=== PATIENT | female | born 1955 | race Caucasian/White ===

== ENCOUNTER 2022-03-19 02:08 | Emergency (ER) | payer BC, MEDICAID ==
[~2022-03-19] VITALS: Ht 157.5 cm; Wt 100.2 kg
[~2022-03-19 02:08] MED LIST: ALBU8HFA INH; FURO20TA4 PO; HYDR12.5 PO; LEVO25TA2 PO; METO-539 PO; MULT-1085 PO; SPIIN IH; [UNRECOGNIZED DRUG - CODE] PO
[2022-03-19 02:45] LABS: BASOPHILS # (AUTO) 0.1 X10'3 (0-0.2); BASOPHILS % (AUTO) 0.5 % (0-1); HEMOGLOBIN 14.3 g/dl (12.0-16.0); LYMPHOCYTES # (AUTO) 1.4 X10'3 (1.1-4.8); MEAN CORPUSCULAR HEMOGLOBIN 28.4 PG (27.0-31.0); MONOCYTES # (AUTO) 0.4 X10'3 (0-0.9); PLATELET COUNT 303 X10'3 (140-440)
[2022-03-19 02:46] LABS: EOSINOPHILS % (AUTO) 0.4 % (0-6); HEMATOCRIT 44.3 % (35.0-45.0); LYMPHOCYTES % (AUTO) 12.4 % (21-51); MEAN CORPUSCULAR HGB CONC 32.3 g/dL (33.0-36.5); MEAN CORPUSCULAR VOLUME 87.9 FL (78-98); MEAN PLATELET VOLUME 7.5 FL (7.4-10.4); MONOCYTES % (AUTO) 3.8 % (2-12); NEUTROPHILS # (AUTO) 9.6 X10'3 (1.8-7.7); NEUTROPHILS % (AUTO) 82.9 % (42-75); RED BLOOD COUNT 5.04 X10'6 (4.20-5.60); WHITE BLOOD COUNT 11.5 X10'3 (4.5-11.0)
[2022-03-19 02:57] LABS: ALANINE AMINOTRANSFERASE 53 U/L (12-78); ALBUMIN 4.2 G/DL (3.4-5.0); ALBUMIN/GLOBULIN RATIO 1.1 (1.1-1.5); ALKALINE PHOSPHATASE 101 IU/L (46-116); ANION GAP 7 (8-16); ASPARTATE AMINO TRANSFERASE 29 U/L (10-37); BILIRUBIN,TOTAL 0.4 MG/DL (0.1-1.0); BLOOD UREA NITROGEN 25 MG/DL (7-18); BUN/CREATININE RATIO 29.8 (6.6-38.0); CALCIUM 10.4 MG/DL (8.5-10.1); CHLORIDE 101 MMOL/L (99-107); CREATININE 0.84 MG/DL (0.40-0.90); GLUCOSE 199 MG/DL (70-104); LIPASE 76 U/L (73-393); POTASSIUM 3.1 MMOL/L (3.5-5.1); SODIUM 139 MMOL/L (135-145); TOTAL CARBON DIOXIDE 31.5 MMOL/L (24-32); TOTAL PROTEIN 7.9 G/DL (6.4-8.2); eGFR 68 ML/MIN
[2022-03-19] MEDS ORDERED: metoclopramide 5 mg/ml inj IV ONE (03:10)
[2022-03-19] MEDS ORDERED: ringers solution, lacted 1,000 ML IV ONE (03:10)
[2022-03-19] MEDS ORDERED: morphine 4 MG/ML inj SYRINge IV ONE (03:10)
[2022-03-19] MEDS ORDERED: potassium Cl 20 mEq SR tablet PO ONE (03:10)
[2022-03-19] MEDS ORDERED: normal saline 1000ML IV soln IVB ONE (03:10)
[2022-03-19] MEDS ORDERED: METO-292 PO (04:47)
[2022-03-19 05:01] VITALS: BP 126/76
== END 2022-03-19 05:09 | disposition home or self-care (01) ==
LOC: ER 02:08
DX: K30 Functional dyspepsia (principal); I10 Essential (primary) hypertension; K21.9 Gastro-esophageal reflux disease without esophagitis; E11.9 Type 2 diabetes mellitus without complications; F17.200 Nicotine dependence, unspecified, uncomplicated; Z88.5 Allergy status to narcotic agent; Z88.6 Allergy status to analgesic agent; Z88.8 Allergy status to other drugs, medicaments and biological substances; Z90.49 Acquired absence of other specified parts of digestive tract; Z98.890 Other specified postprocedural states
CPT/HCPCS: 36415; 74176; 80053; 83690; 85025; 96361; 96374; 96375; 99285; J2270; J2765; J7030; J7120

== ENCOUNTER 2024-09-02 21:02 | Emergency (ER) | payer MEDICARE, OTHER ==
[~2024-09-02] VITALS: Ht 157.5 cm; Wt 108.7 kg
[~2024-09-02 21:02] MED LIST changes: +METO-292 PO
--- NOTE | 2024-09-02 21:13 | ELECTROCARDIOGRAPH REPORT ---
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 Jamel Flor Measurements Intervals [place] Rate: 71 P: 41 [place]: 172 QRS: -51 QRSD: 95 T: 32 QT: 410 QTc: 446 Interpretive Statements Atrial-paced complexes Left anterior fascicular block Low voltage, precordial leads Probable anteroseptal infarct, old Electronically Signed On 09-05-2024 19:16:[address] Jamel Flor Please click the below link to view image of tracing.
[2024-09-02 21:28] LABS: MEAN PLATELET VOLUME 7.0 FL (7.4-10.4); RED CELL DISTRIBUTION WIDTH 15.1 % (11.5-14.5)
[2024-09-02 21:45] LABS: CREATININE 0.56 MG/DL (0.40-0.90); PRO BRAIN NATRIURETIC PEPTIDE 311 PG/ML (0-125); TOTAL CARBON DIOXIDE 27.5 MMOL/L (24-32); eGFR > 90 ML/MIN
--- NOTE | 2024-09-02 21:54 | RADIOLOGY REPORT ---
CHEST RADIOGRAPH Indication: CP Technique: Single frontal view of the chest was obtained COMPARISON: None FINDINGS: Lines and Tubes: None Lungs: Clear Pleura: No effusion. No pneumothorax. Cardiomediastinal contours: Unremarkable. Atherosclerotic vascular calcifications. Bones: Unremarkable IMPRESSION: 1. No acute disease.
[2024-09-02] MEDS: ipratropium/albuterol 3ml nebule NEB PRN (22:44)
[2024-09-02 22:45] VITALS: PULSE 70; RESP 19; O2SAT 93
[2024-09-02 22:51] VITALS: PULSE 67; RESP 16; O2SAT 100
[2024-09-03 00:56] VITALS: BP 164/81; PULSE 87; RESP 16; O2SAT 92
[2024-09-03] MEDS ORDERED: CYCL-920 PO (01:20)
[2024-09-03] MEDS ORDERED: PRED50TA PO (01:20)
[2024-09-03] MEDS ORDERED: ALBU8HFA INH (01:20)
--- NOTE | 2024-09-03 01:21 | Physician Documentation ---
History of Present Illness ~ Chief Complaint: Rib pain Stated Complaint: RIGHT SIDE PAIN SOB Time Seen by MD: 22:17 Primary Medical Doctor: ROMEL BENAVIDES Mode of Arrival: POV HPI 68 year old female with chest wall pain/spasms after bouts of coughing. She ran out of her albuterol inhaler and has been coughing for several weeks. She reports that she has begun to experience severe chest wall cramping after bouts of coughing. Denies fevers, N/V/D. Tetanus within 5 Years?: No Allergies: Coded Allergies: acetaminophen (Verified Allergy, Unknown, NAUSEA, 09/27/14) aspartame (Verified Allergy, Unknown, MIGRAINES, 09/27/14) aspirin (Verified Allergy, Unknown, VOMITTING, 09/27/14) atorvastatin (Verified Allergy, Unknown, CALF SWELLING, 09/27/14) bupropion (Verified Allergy, Unknown, VOMITTING, 09/27/14) codeine (Verified Allergy, Unknown, MIGRAINE, 12/03/14) lisinopril (Verified Allergy, Unknown, COUGH, 12/03/14) varenicline (Verified Allergy, Unknown, VOMITTING, 09/27/14) ezetimibe (Verified Adverse Reaction, Unknown, VOMITTING, 12/03/14) simvastatin (Verified Adverse Reaction, Unknown, STOMACH PAIN, 12/03/14) Uncoded Allergies: MUSHROOMS (Allergy, Unknown, 09/27/14) Active Prescriptions See Medication Reconciliation Form. Medication Reconciliation Scheduled Famotidine (Famotidine), 1 TAB PO HS, (Reported) Furosemide (Furosemide), 1 TABLET PO DAILY Hydrochlorothiazide (Hydrochlorothiazide), 1 TAB PO DAILY, (Reported) Metoclopramide HCl (Reglan), 1 TAB PO ACHS Metoprolol Succinate* (Toprol Xl*), 1 TAB PO BID, (Reported) Multivitamin (Multi Vitamin Daily), 1 TAB PO DAILY, (Reported) Tiotropium [place] (SPIRIVA inhaler), 18 MCG IH DAILY levothyroxine sodium* (Synthroid*), 50 MCG PO HS, (Reported) Scheduled PRN albuterol inhaler (Pro-Air Inhaler), 1-2 PUFFS INH Q4H PRN for SOB or wheezing Past Medical History Past Medical History: Hypertension, GERD, Hernia, Diabetes, Thyroid (unspecified) Past Surgical History: cholecystectomy, Patient History: (CAD) Coronary arteriosclerosis FATHER ( 71 heart &pneumonia was a smoker. wentinto coma before .) MOTHER (CHF) Congestive heart failure MOTHER, Onset:60 years & older (COPD) Chronic obstructive lung disease MOTHER (age 65 dx) (CVA) Cerebrovascular accident MOTHER, Onset:60 years & older ( 77 stroke) Cardiac arrest CHILD, Onset:Childhood Hypercholesterolemia FATHER MOTHER GRANDFATHER OR GRANDMOTHER No Family History of: (CABG) Coronary artery bypass grafting Smoking Status: Current every day smoker Alcohol Use: None Lives In: Home Review of Systems All Other Systems at this time: Reviewed and Negative Physical Exam Vital Signs: RN Vital Signs have been reviewed: Yes, Temperature: 97.0, Heart Rate: 87, Respiratory Rate: 16, BP: 164/81, Pulse Oximetry: 92, Weight: 108.680 Oxygen Flow Rate: 0 Physical Exam HEENT: PERRL, moist oral mucosa, EOMI Pulmonary: No respiratory distress, wheezes throughout Cardiac: RRR, no murmur, rub or gallop GI: nondistended, soft, nontender, no guarding, no rebound MSK: no deformity Skin: w/d/i, no rash Neuro: alert, nonfocal Psych: normal affect Progress Results/Orders Results/Orders Orders - NAHED SCHULZ MD Chest,Single View (09/02/24 21:27) Monitor (09/02/24 21:05) Saline Lock (09/02/24 21:05) Oxygen (09/02/24 21:05) Ipratropium/Albuterol Nebule (Ipratrop/A (09/02/24 22:30) Prednisone Tablet (Prednisone Tablet) (09/02/24 22:30) Completed Orders - NAHED SCHULZ MD Chest,Single View (09/02/24 21:27) Cbc/Diff (09/02/24 21:05) BMP (09/02/24 21:05) PBNP (09/02/24 21:05) Electrocardiogram (09/02/24 21:05) Hs Troponin I W Calculations (09/02/24 21:05) Hs Troponin I W Calculations (09/02/24 23:05) Cyclobenzaprine Tablet (Flexeril Tablet) (09/03/24 00:40) Medications Received in ER Medications (Trade) Dose Ordered Sig/Yoly Route PRN Reason Start Time Stop Time Status Last Admin Dose Admin (ipratrop/ albuterol 0.5-3(2.5) MG/3ml nebule) 3 ml ONCE PRN NEB SOB or wheezing 09/02/24 22:30 09/02/24 22:44 3 ML (predniSONE tablet) 40 mg ONCE PO 09/02/24 22:30 09/02/24 22:39 40 MG (Flexeril tablet) 10 mg ONCE ONCE PO 09/03/24 00:40 09/03/24 00:41 DC 09/03/24 00:54 10 MG Vital Signs 09/02/24 09/02/24 09/02/24 09/02/24 21:06 22:16 22:18 22:45 Temp 97.0 97.0 Pulse 84 72 70 Resp 22 13 19 B/P (MAP) 206/92 184/95 (124) Pulse Ox 94 94 93 O2 Delivery Room Air* O2 Flow Rate 0 0 0 FiO2 N/A 09/02/24 09/03/24 22:51 00:56 Pulse 67 87 Resp 16 16 B/P (MAP) 164/81 (108) Pulse Ox 100 92 O2 Flow Rate 0 Laboratory Tests Test 09/02/24 21:17 09/02/24 22:56 White Blood Count 9.0 Red Blood Count 5.02 Hemoglobin 13.9 Hematocrit 42.6 Mean Corpuscular Volume 84.8 Mean Corpuscular Hemoglobin 27.6 Mean Corpuscular Hemoglobin Concent 32.5 L Red Cell Distribution Width 15.1 H Platelet Count 293 Mean Platelet Volume 7.0 L Neutrophils (%) (Auto) 76.8 H Lymphocytes (%) (Auto) 16.0 L Monocytes (%) (Auto) 5.4 Eosinophils (%) (Auto) 1.0 Basophils (%) (Auto) 0.8 Neutrophils # (Auto) 6.9 Lymphocytes # (Auto) 1.4 Monocytes # (Auto) 0.5 Eosinophils # (Auto) 0.1 Basophils # (Auto) 0.1 CBC Comment Sodium Level 138 Potassium Level 3.8 Chloride Level 104 Carbon Dioxide Level 27.5 Anion Gap 7 L Blood Urea Nitrogen 8 Creatinine 0.56 Estimated GFR/1.73 m2 > 90 BUN/Creatinine Ratio 14.3 Glucose Level 117 H Calcium Level 9.4 Troponin I High Sensitivity 13 14 Pro-B-Type Natriuretic Peptide 311 H Albumin 3.4 Chemistry Comments Troponin I High Sens Percent Delta 7 Troponin I Hi Sens Absolute Change 1 Medical Decision Making Findings 68 year old female with apparent chest wall spasms and COPD exacerbation. Nebulized albuterol, muscle relaxant, steroid provided. Improved on reevaluation, will discharge home with prescriptions. Differential Dx:Considerations: Include: Chest wall contusion, Pneumothorax, Pulmonary contusion, Rib fracture, Renal contusion Departure Disposition: HOME / SELF CARE / HOMELESS Impression: Primary Impression: COPD exacerbation Condition: Stable Referrals: NO PRIMARY CARE PROVIDER (PCP) Prescriptions Prednisone (Prednisone) 50 Mg Tablet 1 TAB PO DAILY for 5 Days, #5 TAB 0 Refills Prov: NAHED SCHULZ MD 09/03/24 albuterol inhaler (Pro-Air Inhaler) 8.5 Gm Inhaler 2 PUFFS INH Q4HPRN PRN for wheezing for 30 Days, #18 GM Prov: NAHED SCHULZ MD 09/03/24 Cyclobenzaprine HCl (Cyclobenzaprine HCl) 5 Mg Tablet 1 TAB PO TID PRN PRN for muscle spasms for 10 Days, #30 TAB 0 Refills Prov: NAHED SCHULZ MD 09/03/24 Education Educated: Patient Educated regarding: diagnosis, treatment, prognosis, need for follow up Signature Scribe Signature: . Attestation: . NAHED SCHULZ MD Sep 03, 2024 01:21
[2024-09-03 01:47] VITALS: TEMP 97
== END 2024-09-03 01:50 | disposition home or self-care (01) ==
LOC: ER 21:03
DX: J44.1 Chronic obstructive pulmonary disease with (acute) exacerbation (principal); F17.200 Nicotine dependence, unspecified, uncomplicated; E78.00 Pure hypercholesterolemia, unspecified; K21.9 Gastro-esophageal reflux disease without esophagitis; E11.9 Type 2 diabetes mellitus without complications; I11.0 Hypertensive heart disease with heart failure; I50.9 Heart failure, unspecified; I25.10 Atherosclerotic heart disease of native coronary artery without angina pectoris; Z90.49 Acquired absence of other specified parts of digestive tract; Z88.6 Allergy status to analgesic agent; Z88.5 Allergy status to narcotic agent; Z88.8 Allergy status to other drugs, medicaments and biological substances; Z79.899 Other long term (current) drug therapy
CPT/HCPCS: 36415; 71045; 80048; 83880; 84484; 85025; 93005; 94640; 99285; J7512